=== PATIENT | female | born 1985 | race Caucasian/White ===

== ENCOUNTER 2017-08-14 06:50 | Emergency (ER) | payer MEDICAID ==
[~2017-08-14] VITALS: Ht 177.8 cm; Wt 127.0 kg
[~2017-08-14 06:50] MED LIST: ALBU17I INH; CIPR500T4 PO; PROM25SU8 PO
[2017-08-14 06:54] VITALS: BP 136/70; PULSE 73; RESP 15; TEMP 97.7; O2SAT 97
[2017-08-14] MEDS ORDERED: ACETAMINOPHEN 500 MG CPLT PO ONE (07:30)
[2017-08-14] MEDS ORDERED: AMOX500T PO (07:35)
[2017-08-14] MEDS ORDERED: TYLE325T PO (07:35)
--- NOTE | 2017-08-14 07:35 | PD ---
HPI Chief Complaint: ENT Complaint Time Seen by Provider: 07:05 Travel History International Travel<30 days: No Contact w/Intl Traveler<30days: No Traveled to known affect area: No History of Present Illness HPI 31yo F with no significant PMH presents to the ED with c/o left ear pain since yesterday. States last time she had an ear infection, it felt like this. Pain is sharp, starting to radiating to her throat and also with ear fullness. Denies any fever, trauma, ear drainage, bleeding from ear, excessive swimming. Denies any rhinorrhea, cough, chest pain, sob, n/v, abdominal pain, focal weakness or numbness. Took ibuprofen with no relieve. PFSH Past Medical History Asthma: Yes Cancer: No Cardiovascular Problems: No Diabetes: No Diminished Hearing: No Endocrine: No Gastrointestinal Disorders: No Genitourinary: No Hepatitis: No Hiatal Hernia: No Hypertension: No Immune Disorder: No Musculoskeletal: No Neurologic: No Psychiatric: No Reproductive: No Respiratory: Yes (asthma) Immunizations Current: Yes Thyroid Disease: No ?: Not LMP: 07/25/2017 Miscarriage: 2 Dilation and Curettage (D&C): Yes Past Surgical History Gynecologic Surgery: Yes (d and c ) Oral Surgery: Yes (tonsillectomy) Pacemaker: No Tonsillectomy: Yes Other Surgery: Yes Social History Alcohol Use: No Tobacco Use: No Substance Use: No Allergies-Medications (Allergen,Severity, Reaction): Coded Allergies: No Known Allergies (Verified , 08/14/17) Reported Meds & Prescriptions Reported Meds & Active Scripts Active Tylenol (Acetaminophen) 325 Mg Tab 650 Mg PO Q6H PRN Amoxicillin 500 Mg Tab 1,000 Mg PO Q8HR 5 Days Review of Systems Except as stated in HPI: all other systems reviewed are Neg Physical Exam Narrative GENERAL: 31yo F in mild distress. SKIN: Focused skin assessment warm/dry. HEAD: Atraumatic. Normocephalic. EYES: Pupils equal and round. No scleral icterus. No injection or drainage. ENT: TM wnl bilaterally. No erythema. No fluid behind TM. No external canal edema. No mastoid ttp. Throat: Clear. Uvula midline. No erythema or exudate. NECK: Trachea midline. No JVD. Mild left anterior cervical lymphadenopathy. CARDIOVASCULAR: Regular rate and rhythm. No murmur appreciated. RESPIRATORY: No accessory muscle use. Clear to auscultation. Breath sounds equal bilaterally. GASTROINTESTINAL: Abdomen soft, non-tender, nondistended. MUSCULOSKELETAL: No obvious deformities. No clubbing. No cyanosis. No edema. NEUROLOGICAL: Awake and alert. No obvious cranial nerve deficits. Motor grossly within normal limits. Normal speech. PSYCHIATRIC: Appropriate mood and affect; insight and judgment normal. Data Data Last Documented VS Vital Signs Date Time Temp Pulse Resp B/P (MAP) Pulse Ox O2 Delivery O2 Flow Rate FiO2 08/14/17 06:54 97.7 73 15 136/70 (92) 97 Orders Orders Acetaminophen (Tylenol) (08/14/17 07:30) MDM Medical Decision Making Medical Screen Exam Complete: Yes Emergency Medical Condition: Yes Differential Diagnosis Viral syndrome vs. early otitis media Narrative Course 31yo F with left ear pain for 1 day. I informed pt that the physical exam is not consistent with acute otitis media. She is insistent that she is going to working all weekend and unable to see a doctor this weekend. After discussion of risks versus benefit of antibiotics, I agreed to prescribe antibiotics for otitis media but I do not want her to fill it. I said that if the pain persists , she can be evaluated by her primary care physician. However, if she absolutely cannot follow up and pain is worsening with fever, then she can consider filling the prescription. Will give acetaminophen now for pain. Pt reevaluated at bedside and feels better and understands all instructions. Diagnosis Primary Impression: Left ear pain Patient Instructions: General Instructions Departure Forms: Tests/Procedures Additional Instructions: Please follow up with your primary care physician if pain continues or worsens. Return to the ED if symptoms worsen. Med/Other Pt SpecificInfo: Prescription(s) given Scripts Acetaminophen (Tylenol) 325 Mg Tab 650 MG PO Q6H Y for PAIN SCALE 1 TO 4, #20 TAB 0 Refills Prov: Antonette Wise DO 08/14/17 Amoxicillin (Amoxicillin) 500 Mg Tab 1000 MG PO Q8HR for Infection for 5 Days, TAB 0 Refills Prov: Antonette Wise DO 08/14/17 Disposition: 01 DISCHARGE HOME Condition: Stable Antonette Wise DO Aug 14, 2017 07:35
== END 2017-08-14 07:42 | disposition home or self-care (01) ==
LOC: PHED 06:50
DX: H92.02 Otalgia, left ear (principal)
CPT/HCPCS: 99283

== ENCOUNTER 2017-09-01 09:42 | Emergency (ER) | payer MEDICAID ==
[~2017-09-01] VITALS: Ht 154.9 cm; Wt 126.0 kg
[~2017-09-01 09:42] MED LIST changes: -ALBU17I INH; +AMOX500T PO; -CIPR500T4 PO; -PROM25SU8 PO; +TYLE325T PO
[2017-09-01 09:54] VITALS: BP 136/77; PULSE 74; RESP 16; TEMP 98.2; O2SAT 100
[2017-09-01] MEDS ORDERED: SODIUM CHLOR 0.9% 1000 ML INJ 1,000 ML IV ONE ×2 (09:59→12:32)
[2017-09-01] MEDS ORDERED: SODIUM CHLORIDE 0.9% FLUSH 10 ML FLUSH IVF PRN (10:00)
[2017-09-01] MEDS ORDERED: MECLIZINE HCL 25 MG TAB PO ONE (10:00)
[2017-09-01] MEDS ORDERED: ONDANSETRON HCL 4 MG/2 ML VIAL IVP ONE (10:00)
[2017-09-01] MEDS ORDERED: LORazepam 2 MG/ML VIAL IV PUSH ONE (10:00)
[2017-09-01 10:29] LABS: BASOPHIL # 0.1 TH/MM3 (0-0.2); BASOPHIL % 1.1 % (0.0-2.0); EOSINOPHIL # 0.3 TH/MM3 (0-0.4); EOSINOPHIL % 3.4 % (0.0-4.0); HEMATOCRIT 38.5 % (35.0-46.0); HEMOGLOBIN 12.6 GM/DL (11.6-15.3); LYMPH % 21.6 % (9.0-44.0); LYMPHOCYTE # 1.6 TH/MM3 (1.0-4.8); MEAN CELL VOLUME 78.3 FL (80.0-100.0); MEAN CORPUSCULAR HEMOGLOBIN 25.7 PG (27.0-34.0); MEAN CORPUSCULAR HGB CONC 32.8 % (32.0-36.0); MEAN PLATELET VOLUME 8.4 FL (7.0-11.0); MONO % 8.5 % (0.0-8.0); MONOCYTE # 0.6 TH/MM3 (0-0.9); NEUT % 65.4 % (16.0-70.0); PLATELET COUNT 220 TH/MM3 (150-450); RED BLOOD COUNT 4.91 MIL/MM3 (4.00-5.30); RED CELL DISTRIBUTION WIDTH 15.5 % (11.6-17.2); WHITE BLOOD COUNT 7.6 TH/MM3 (4.0-11.0)
[2017-09-01 10:48] LABS: BICARBONATE 21.2 MEQ/L (21.0-32.0); CREATININE 0.68 MG/DL (0.50-1.00)
[2017-09-01 11:00] VITALS: BP 125/80; PULSE 74; RESP 16; O2SAT 98
[2017-09-01 12:23] LABS: AMORPHOUS SEDIMENT, URINE RARE; BACTERIA, URINE OCC /hpf; BILIRUBIN, URINE NEG (NEG); BLOOD, URINE NEG (NEG); GLUCOSE,URINE NEG (NEG); KETONE, URINE NEG (NEG); MUCUS URINE FEW /lpf (OCC); NITRITE,URINE NEG (NEG); SQUAMOUS EPITHELIAL CELL URINE 10 /hpf (0-5); URINE COLOR LIGHT-YELLOW (YELLW/STRAW); URINE LEUKOCYTE ESTERASE LARGE (NEG)
[2017-09-01 12:30] VITALS: BP 120/60; PULSE 60; RESP 16; O2SAT 98
[2017-09-01] MEDS ORDERED: MECL-62 PO (12:30)
--- NOTE | 2017-09-01 12:30 | PD ---
HPI Chief Complaint: Dizziness Time Seen by Provider: 09:59 Travel History International Travel<30 days: No Contact w/Intl Traveler<30days: No Traveled to known affect area: No History of Present Illness HPI 31-year-old female arrives complaining of right face pain after undergoing 3 fillings by dentist just earlier today. She also describes a fullness sensation in the throat. Lidocaine was injected. She reports sitting upright from the dentist chair and feeling dizzy. Short of breath accompanied the dizziness. She describes a choking sensation as well as a headache and a squeezing quality. EMS notes vital signs were normal. Patient describes the dizziness, vertiginous in nature. No loss of consciousness. No chest pain. No fever. No similar prior episodes according to patient. PFSH Past Medical History Asthma: Yes Cancer: No Cardiovascular Problems: No Diabetes: No Diminished Hearing: No Endocrine: No Gastrointestinal Disorders: No Genitourinary: No Hepatitis: No Hiatal Hernia: No Hypertension: No Immune Disorder: No Musculoskeletal: No Neurologic: No Psychiatric: No Reproductive: No Respiratory: Yes (ASTHMA) Immunizations Current: Yes Thyroid Disease: No Tetanus Vaccination: < 5 Years Influenza Vaccination: No ?: Unknown Miscarriage: 2 Dilation and Curettage (D&C): Yes Past Surgical History Gynecologic Surgery: Yes (d and c ) Oral Surgery: Yes (tonsillectomy) Pacemaker: No Tonsillectomy: Yes Other Surgery: Yes Social History Alcohol Use: No Tobacco Use: No Substance Use: No Allergies-Medications (Allergen,Severity, Reaction): Coded Allergies: rabbit dander (Verified Allergy, Severe, Anaphylaxis, 09/01/17) Reported Meds & Prescriptions Reported Meds & Active Scripts Active Meclizine (Meclizine HCl) 25 Mg Tab 25 Mg PO TID PRN Review of Systems Except as stated in HPI: all other systems reviewed are Neg General / Constitutional: No: Fever Cardiovascular: Positive: Chest Pain or Discomfort Physical Exam Narrative GENERAL: 31-year-old female pleasant well-nourished well-developed acute distress SKIN: Warm and dry. HEAD: Atraumatic. Normocephalic. EYES: Pupils equal and round. No scleral icterus. No injection or drainage. ENT: No nasal bleeding or discharge. Mucous membranes pink and moist. No gross abnormality involving oral mucosa or dentition. Posterior oropharynx widely patent. NECK: Trachea midline. No JVD. No anterior neck masses. No anterior neck tenderness. Normal range of motion flexion extension rotation. CARDIOVASCULAR: Regular rate and rhythm. RESPIRATORY: No accessory muscle use. Clear to auscultation. Breath sounds equal bilaterally. GASTROINTESTINAL: Abdomen soft, non-tender, nondistended. Hepatic and splenic margins not palpable. MUSCULOSKELETAL: Extremities without clubbing, cyanosis, or edema. No obvious deformities. NEUROLOGICAL: Awake and alert. No obvious cranial nerve deficits. Motor grossly within normal limits. Five out of 5 muscle strength in the arms and legs. Normal speech. PSYCHIATRIC: Appropriate mood and affect; insight and judgment normal. Data Data Last Documented VS Vital Signs Date Time Temp Pulse Resp B/P (MAP) Pulse Ox O2 Delivery O2 Flow Rate FiO2 09/01/17 13:13 98.0 09/01/17 11:00 74 16 98 Room Air Vital Signs Date Time Temp Pulse Resp B/P (MAP) Pulse Ox O2 Delivery O2 Flow Rate FiO2 09/01/17 13:13 98.0 09/01/17 11:00 74 16 125/80 (95) 98 Room Air 09/01/17 09:54 98.2 74 16 136/77 (96) 100 Orders Orders Electrocardiogram (09/01/17 09:59) Basic Metabolic Panel (Bmp) (09/01/17 09:59) Complete Blood Count With Diff (09/01/17 09:59) Urinalysis - C+S If Indicated (09/01/17 09:59) Ecg Monitoring (09/01/17 09:59) Iv Access Insert/Monitor (09/01/17 09:59) Oximetry (09/01/17 09:59) Meclizine (Antivert) (09/01/17 10:00) Ondansetron Inj (Zofran Inj) (09/01/17 10:00) Sodium Chloride 0.9% Flush (Ns Flush) (09/01/17 10:00) Sodium Chlor 0.9% 1000 Ml Inj (Ns 1000 M (09/01/17 09:59) Lorazepam Inj (Ativan Inj) (09/01/17 10:00) Prochlorperazine Inj (Compazine Inj) (09/01/17 12:45) Diphenhydramine Inj (Benadryl Inj) (09/01/17 12:45) Sodium Chlor 0.9% 1000 Ml Inj (Ns 1000 M (09/01/17 12:32) Ed Discharge Order (09/01/17 13:20) Labs Laboratory Tests Test 09/01/17 09:25 09/01/17 11:45 White Blood Count 7.6 TH/MM3 Red Blood Count 4.91 MIL/MM3 Hemoglobin 12.6 GM/DL Hematocrit 38.5 % Mean Corpuscular Volume 78.3 FL Mean Corpuscular Hemoglobin 25.7 PG Mean Corpuscular Hemoglobin Concent 32.8 % Red Cell Distribution Width 15.5 % Platelet Count 220 TH/MM3 Mean Platelet Volume 8.4 FL Neutrophils (%) (Auto) 65.4 % Lymphocytes (%) (Auto) 21.6 % Monocytes (%) (Auto) 8.5 % Eosinophils (%) (Auto) 3.4 % Basophils (%) (Auto) 1.1 % Neutrophils # (Auto) 5.0 TH/MM3 Lymphocytes # (Auto) 1.6 TH/MM3 Monocytes # (Auto) 0.6 TH/MM3 Eosinophils # (Auto) 0.3 TH/MM3 Basophils # (Auto) 0.1 TH/MM3 CBC Comment DIFF FINAL Differential Comment Blood Urea Nitrogen 10 MG/DL Creatinine 0.68 MG/DL Random Glucose 99 MG/DL Calcium Level 9.0 MG/DL Sodium Level 138 MEQ/L Potassium Level 4.0 MEQ/L Chloride Level 107 MEQ/L Carbon Dioxide Level 21.2 MEQ/L Anion Gap 10 MEQ/L Estimat Glomerular Filtration Rate 100 ML/MIN Urine Color LIGHT-YELLOW Urine Turbidity HAZY Urine pH 7.0 Urine Specific [place] 1.008 Urine Protein NEG mg/dL Urine Glucose (UA) NEG mg/dL Urine Ketones NEG mg/dL Urine Occult Blood NEG Urine Nitrite NEG Urine Bilirubin NEG Urine Urobilinogen LESS THAN 2.0 MG/DL Urine Leukocyte Esterase LARGE Urine RBC 6 /hpf Urine WBC 2 /hpf Urine Squamous Epithelial Cells 10 /hpf Urine Amorphous Sediment RARE Urine Bacteria OCC /hpf Urine Mucus FEW /lpf Microscopic Urinalysis Comment CULT NOT INDICATED MDM Medical Decision Making Medical Screen Exam Complete: Yes Emergency Medical Condition: Yes Medical Record Reviewed: Yes Differential Diagnosis Anemia, electrolyte imbalance, migraine, side effects from lidocaine ingestion, anxiety, anaphylaxis Narrative Course CBC & BMP Diagram 09/01/17 09:25 Calcium Level 9.0 EKG reveals sinus rhythm with a rate of 70 normal axis intervals no preexcitation or ischemic injury pattern The patient received meclizine and IV fluids. Upon reassessment dizziness had improved however headache persisted. Compazine Benadryl IV fluids added. Reassessment at approximately 1145 patient reports resolution of pain and is ready for discharge. Diagnosis Primary Impression: Vertigo Additional Impression: Headache Qualified Codes: R51 - Headache Referrals: Primary Care Physician call for appointment Additional Instructions: You have a choice when it comes to health care, and we are glad that you chose [email or web address]. Hopefully, we have met your expectations on today's visit. You are welcome to return to [email or web address] at any time, as we are committed to meeting the health care needs of our community. Med/Other Pt SpecificInfo: Prescription(s) given Scripts Meclizine (Meclizine) 25 Mg Tab 25 MG PO TID Y for VERTIGO, #30 TAB 0 Refills Prov: Latrell Guzman MD 09/01/17 Disposition: DISCHARGE HOME Condition: Stable Latrell Guzman MD Sep 01, 2017 12:30
[2017-09-01] MEDS ORDERED: diphenhydrAMINE HCL 50 MG/ML VIAL IVP ONE (12:45)
[2017-09-01] MEDS ORDERED: PROCHLORPERAZINE INJ 10 MG/2 ML VIAL IVP ONE (12:45)
[2017-09-01 13:13] VITALS: TEMP 98
[2017-09-01 14:09] VITALS: BP 119/64; PULSE 66; RESP 14; O2SAT 98
--- NOTE | 2017-09-01 17:55 | EKG ---
Date Performed: 09/01/2017 Time Performed: 10:28:10 PTAGE: 31 years EKG: Sinus rhythm MODERATE VOLTAGE CRITERIA FOR LVH, CONSIDER NORMAL VARIANT BORDERLINE ECG Compared to prior tracing no significant change PREVIOUS TRACING : 01/21/2008 19.11 DOCTOR: Dio Flores Interpretating Date/Time 09/01/2017 17:53:53
== END 2017-09-01 14:30 | disposition home or self-care (01) ==
LOC: NEPC 09:42
DX: R42 Dizziness and giddiness (principal); R51 Headache
CPT/HCPCS: 80048; 81001; 85025; 93005; 96361; 96374; 96375; 99284; J0780; J1200; J2060; J2405; J7030

== ENCOUNTER 2017-09-26 11:17 | Emergency (ER) | payer MEDICAID ==
[~2017-09-26] VITALS: Ht 180.3 cm; Wt 128.0 kg
[~2017-09-26 11:17] MED LIST changes: -AMOX500T PO; +MECL-62 PO; -TYLE325T PO
[2017-09-26 11:21] VITALS: BP 155/79; PULSE 67; RESP 16; TEMP 98.6; O2SAT 99
[2017-09-26] MEDS ORDERED: PENI250T PO (11:32)
[2017-09-26] MEDS ORDERED: KETOROLAC TROMETHAMINE 60 MG/2 ML (IM) VIAL IM ONE (12:00)
[2017-09-26] MEDS ORDERED: CLIN300C5 PO (12:08)
--- NOTE | 2017-09-26 12:14 | PD ---
HPI Chief Complaint: Oral / Dental Pain or Problem Time Seen by Provider: 11:47 Travel History International Travel<30 days: No Contact w/Intl Traveler<30days: No Traveled to known affect area: No History of Present Illness HPI 31-year-old female here for evaluation of left lower facial swelling. She was diagnosed with a dental infection and started on Pen-Vee K several days ago. When she woke this morning she noticed the swelling was worse prompting her emergency room visit. She denies difficulty swallowing or change in voice. She reports the pain is constant, throbbing located left lower jaw. No alleviating factors. Pain severity 04/19. PFSH Past Medical History Asthma: Yes Cancer: No Cardiovascular Problems: No Diabetes: No Diminished Hearing: No Endocrine: No Gastrointestinal Disorders: No Genitourinary: No Hepatitis: No Hiatal Hernia: No Hypertension: No Immune Disorder: No Musculoskeletal: No Neurologic: No Psychiatric: No Reproductive: No Respiratory: Yes (ASTHMA) Immunizations Current: Yes Thyroid Disease: No ?: Unknown LMP: 08/29/17 Miscarriage: 2 Dilation and Curettage (D&C): Yes Past Surgical History Gynecologic Surgery: Yes (d and c ) Oral Surgery: Yes (tonsillectomy) Pacemaker: No Tonsillectomy: Yes Other Surgery: Yes Social History Alcohol Use: No Tobacco Use: No Substance Use: No Allergies-Medications (Allergen,Severity, Reaction): Coded Allergies: rabbit dander (Verified Allergy, Severe, Anaphylaxis, 09/26/17) Reported Meds & Prescriptions Reported Meds & Active Scripts Active Reported Penicillin V Potassium 250 Mg Tab 250 Mg PO Q6H Review of Systems Except as stated in HPI: all other systems reviewed are Neg Physical Exam Narrative GENERAL: Well-nourished, well-developed patient. SKIN: Focused skin assessment warm/dry. HEAD: Normocephalic. EYES: No scleral icterus. No injection or drainage. MOUTH: Mucous membranes moist, no lesions, tongue and gums appear normal. No swelling to the floor the mouth. Uvula is midline. NECK: Supple, trachea midline. No JVD or lymphadenopathy. CARDIOVASCULAR: Regular rate and rhythm without murmurs, gallops, or rubs. RESPIRATORY: Breath sounds equal bilaterally. No accessory muscle use. Data Data Last Documented VS Vital Signs Date Time Temp Pulse Resp B/P (MAP) Pulse Ox O2 Delivery O2 Flow Rate FiO2 09/26/17 11:21 98.6 67 16 155/79 (104) 99 Orders Orders Ketorolac Inj (Toradol Inj) (09/26/17 12:00) MDM Medical Decision Making Medical Screen Exam Complete: Yes Emergency Medical Condition: Yes Differential Diagnosis Dental abscess, periodontal disease, very unlikely Cristopher angina Narrative Course 31-year-old female here for evaluation of left lower facial swelling. She was diagnosed with a dental infection and started on Pen-Vee K several days ago. When she woke this morning she noticed the swelling was worse prompting her emergency room visit. Her vital signs are stable and she is nontoxic- appearing. She denies difficulty swallowing. On exam she has isolated left cheek swelling. There is no oral swelling. She was instructed to stop the penicillin and start clindamycin and follow up with her dentist at her scheduled appointment. Diagnosis Primary Impression: Dental abscess Referrals: Dentist Additional Instructions: Take the antibiotics as prescribed. Continue the Motrin as needed for pain. Follow-up with your dentist. Return to emergency department if new or worsening symptoms. Scripts Clindamycin (Clindamycin) 300 Mg Cap 300 MG PO Q6H for Infection for 10 Days, #40 CAP 0 Refills Prov: Chelo Gray 09/26/17 Disposition: 01 DISCHARGE HOME Condition: Stable Chelo Gray Sep 26, 2017 12:14
[2017-09-27] MEDS ORDERED: TRAM50TA PO (17:44)
== END 2017-09-26 12:27 | disposition home or self-care (01) ==
LOC: PHEFT 11:17
DX: K04.7 Periapical abscess without sinus (principal)
CPT/HCPCS: 96372; 99284; J1885

== ENCOUNTER 2017-09-27 16:21 | Emergency (ER) | payer MEDICAID ==
[~2017-09-27 16:21] MED LIST changes: +CLIN300C5 PO; -MECL-62 PO; +PENI250T PO
[2017-09-27 16:23] VITALS: BP 148/85; PULSE 74; RESP 17; TEMP 98.6; O2SAT 100
[2017-09-27] MEDS ORDERED: TRAM50TA PO (17:44)
[2017-09-27] MEDS ORDERED: KETOROLAC TROMETHAMINE 60 MG/2 ML (IM) VIAL IM ONE (17:45)
--- NOTE | 2017-09-27 17:45 | PD ---
HPI Chief Complaint: Oral / Dental Pain or Problem Time Seen by Provider: 17:23 Travel History International Travel<30 days: No Contact w/Intl Traveler<30days: No Traveled to known affect area: No History of Present Illness HPI This is a 31-year-old female who has a known dental abscess affecting the left jaw which has been going on for about a week who presents to the emergency department with increasing pain. She saw a dentist earlier in the week who put her on Flagyl which she been taking up until yesterday. She was seen in the emergency department yesterday because she had increasing swelling and she didn' t feel like she was getting better. Her pain is moderate severity, constant, throbbing, with no associated fevers or chills. She started clindamycin and has been taking it for 24 hours. She comes in today because her pain is unbearable. She's been taking 800 mg of ibuprofen every 4-6 hours and is not helping. She does have a dental appointment on Friday. [facility] Past Medical History Narrative Medical Asthma Asthma: Yes Cancer: No Cardiovascular Problems: No Diabetes: No Diminished Hearing: No Endocrine: No Gastrointestinal Disorders: No Genitourinary: No Hepatitis: No Hiatal Hernia: No Hypertension: No Immune Disorder: No Musculoskeletal: No Neurologic: No Psychiatric: No Reproductive: No Respiratory: Yes (ASTHMA) Immunizations Current: Yes Thyroid Disease: No ?: Unknown LMP: 08/29/17 Miscarriage: 2 Dilation and Curettage (D&C): Yes Past Surgical History Gynecologic Surgery: Yes (d and c ) Oral Surgery: Yes (tonsillectomy) Pacemaker: No Tonsillectomy: Yes Other Surgery: Yes Social History Alcohol Use: No Tobacco Use: No Substance Use: No Allergies-Medications (Allergen,Severity, Reaction): Coded Allergies: rabbit dander (Verified Allergy, Severe, Anaphylaxis, 09/27/17) Reported Meds & Prescriptions Reported Meds & Active Scripts Active Tramadol (Tramadol HCl) 50 Mg Tab 50 Mg PO Q6H PRN Clindamycin (Clindamycin HCl) 300 Mg Cap 300 Mg PO Q6H 10 Days Reported Penicillin V Potassium 250 Mg Tab 250 Mg PO Q6H Review of Systems Except as stated in HPI: all other systems reviewed are Neg Physical Exam Narrative GENERAL:Well appearing, no acute distress SKIN: Focused skin assessment warm and dry. HEAD: Atraumatic. Normocephalic. EYES: Pupils equal and round. No injection or drainage. ENT: Swelling of the left mandible with a area of fullness, markedly tender. Patient has a old fractured mandibular molar which is tender to palpation. No submental or sublingual fullness and no erythema or induration of the neck or chest. NECK: Trachea midline. CARDIOVASCULAR: Regular rate and rhythm. No murmur appreciated. RESPIRATORY: Clear to auscultation. Breath sounds equal bilaterally. GASTROINTESTINAL: Abdomen soft, non-tender, nondistended. MUSCULOSKELETAL: No obvious deformities. NEUROLOGICAL: Awake and alert. No obvious cranial nerve deficits. Moving all extremities. PSYCHIATRIC: Appropriate mood and affect; insight and judgment normal. Data Data Last Documented VS Vital Signs Date Time Temp Pulse Resp B/P (MAP) Pulse Ox O2 Delivery O2 Flow Rate FiO2 09/27/17 17:09 16 09/27/17 16:23 98.6 74 148/85 (106) 100 Room Air Orders Orders Ketorolac Inj (Toradol Inj) (09/27/17 17:45) Ed Discharge Order (09/27/17 17:45) [facility] Medical Decision Making Medical Screen Exam Complete: Yes Emergency Medical Condition: Yes Differential Diagnosis Dental abscess, Cristopher's angina, dental pain Narrative Course This is a 31-year-old female who has a dental abscess who presents with increasing pain. She has an appointment with the dentist on Friday and has been compliant with antibiotics. She's been taking ibuprofen but has not been helping. Patient was given an injection of IM Toradol and will be discharged on a short course of tramadol. I counseled her regarding the risks of opiate therapy and I counseled her regarding the signs and symptoms of Cristopher angina. Diagnosis Primary Impression: Dental abscess Patient Instructions: General Instructions Additional Instructions: If you develop increasing swelling, difficulty eating difficulty swallowing or difficulty breathing return to the emergency room. Follow-up with your dentist as soon as possible. Med/Other Pt SpecificInfo: Prescription(s) given Scripts Tramadol (Tramadol) 50 Mg Tab 50 MG PO Q6H Y for PAIN, #14 TAB 0 Refills Prov: Jessica Medrano MD 09/27/17 Disposition: 01 DISCHARGE HOME Condition: Stable Jessica Medrano MD Sep 27, 2017 17:44
== END 2017-09-27 18:30 | disposition home or self-care (01) ==
LOC: NEPD 16:21
DX: K04.7 Periapical abscess without sinus (principal); Z87.09 Personal history of other diseases of the respiratory system
CPT/HCPCS: 96372; 99284; J1885

== ENCOUNTER 2017-10-20 14:42 | Emergency (ER) | payer MEDICAID ==
[~2017-10-20] VITALS: Ht 180.3 cm; Wt 125.0 kg
[~2017-10-20 14:42] MED LIST changes: +TRAM50TA PO
[2017-10-20 14:56] VITALS: BP 166/71; PULSE 116; RESP 20; TEMP 100.7; O2SAT 99
--- NOTE | 2017-10-20 15:11 | PD ---
HPI Chief Complaint: Cold / Flu Symptoms Time Seen by Provider: 15:06 Travel History International Travel<30 days: No Contact w/Intl Traveler<30days: No Traveled to known affect area: No History of Present Illness HPI 32-year-old female patient with history of asthma, presents to the ER today for 5 days history of nasal congestion, headaches, nausea, vomiting, diarrhea, body aches and pains, coughing. She states that her has had similar symptoms in the last few days. She states that her symptoms are improving but she is continuing to have fevers and was concerned. Modifying Factors: None Associated Signs & Symptoms: Cough, nausea, vomiting, diarrhea, body aches, fevers, headaches Risk Factors: Sick contact PFSH Past Medical History Asthma: Yes Cancer: No Cardiovascular Problems: No Diabetes: No Diminished Hearing: No Endocrine: No Gastrointestinal Disorders: No Genitourinary: No Hepatitis: No Hiatal Hernia: No Hypertension: No Immune Disorder: No Musculoskeletal: No Neurologic: No Psychiatric: No Reproductive: No Respiratory: Yes (ASTHMA) Immunizations Current: Yes Thyroid Disease: No ?: Not LMP: 10/04/17 Miscarriage: 2 Dilation and Curettage (D&C): Yes Past Surgical History Gynecologic Surgery: Yes (d and c ) Oral Surgery: Yes (tonsillectomy) Pacemaker: No Tonsillectomy: Yes Other Surgery: Yes Social History Alcohol Use: No Tobacco Use: No Substance Use: No Allergies-Medications (Allergen,Severity, Reaction): Coded Allergies: rabbit dander (Verified Allergy, Severe, Anaphylaxis, 10/20/17) Reported Meds & Prescriptions Reported Meds & Active Scripts Active Reported Proair Hfa 8.5 GM Inh (Albuterol Sulfate) 90 Mcg/Act Aer 2 Puff INH Q4-6H PRN 108 mcg/actuation Review of Systems Except as stated in HPI: all other systems reviewed are Neg Physical Exam Narrative GENERAL: Well-developed young female patient currently in mild distress. Awake and oriented 3. SKIN: Focused skin assessment warm/dry. HEAD: Atraumatic. Normocephalic. EYES: Pupils equal and round. No scleral icterus. No injection or drainage. ENT: No nasal bleeding or discharge. Mucous membranes pink and moist. NECK: Trachea midline. No JVD. CARDIOVASCULAR: Regular rate and rhythm. No murmur appreciated. RESPIRATORY: No accessory muscle use. Clear to auscultation. Breath sounds equal bilaterally. GASTROINTESTINAL: Abdomen soft, non-tender, nondistended. Hepatic and splenic margins not palpable. MUSCULOSKELETAL: No obvious deformities. No clubbing. No cyanosis. No edema. NEUROLOGICAL: Awake and alert. No obvious cranial nerve deficits. Motor grossly within normal limits. Normal speech. PSYCHIATRIC: Appropriate mood and affect; insight and judgment normal. Data Data Last Documented VS Vital Signs Date Time Temp Pulse Resp B/P (MAP) Pulse Ox O2 Delivery O2 Flow Rate FiO2 10/20/17 15:34 100.2 114 20 134/68 (90) 97 Room Air Orders Orders Urinalysis - C+S If Indicated (10/20/17 15:06) Influenzae A/B Antigen (10/20/17 15:06) Ed Urine Pregnancytest Poc (10/20/17 15:06) Sepsis Workup Initiated (10/20/17 ) Complete Blood Count With Diff (10/20/17 16:01) Comprehensive Metabolic Panel (10/20/17 16:01) Lactic Acid Sepsis Protocol (10/20/17 16:01) Blood Culture (10/20/17 16:01) Sodium Chlor 0.9% 1000 Ml Inj (Ns 1000 M (10/20/17 16:01) Urine Culture (10/20/17 15:19) Ibuprofen (Motrin) (10/20/17 17:00) Nitrofurantoin Monohyd Macrocr (Macrobid (10/20/17 17:00) Labs Laboratory Tests Test 10/20/17 15:19 10/20/17 16:12 Urine Collection Type VOIDED Urine Color YELLOW Urine Turbidity HAZY Urine pH 7.5 Urine Specific [place] 1.012 Urine Protein NEG mg/dL Urine Glucose (UA) NEG mg/dL Urine Ketones NEG mg/dL Urine Occult Blood TRACE Urine Nitrite NEG Urine Bilirubin NEG Urine Leukocyte Esterase LARGE Urine RBC 0-3 /hpf Urine WBC 25-49 /hpf Urine WBC Clumps FEW Urine Squamous Epithelial Cells 0-3 /hpf Urine Bacteria FEW /hpf Microscopic Urinalysis Comment CULTURE INDICATED White Blood Count 8.9 TH/MM3 Red Blood Count 5.12 MIL/MM3 Hemoglobin 12.6 GM/DL Hematocrit 39.9 % Mean Corpuscular Volume 78.0 FL Mean Corpuscular Hemoglobin 24.6 PG Mean Corpuscular Hemoglobin Concent 31.6 % Red Cell Distribution Width 13.6 % Platelet Count 244 TH/MM3 Mean Platelet Volume 7.8 FL Neutrophils (%) (Auto) 74.9 % Lymphocytes (%) (Auto) 12.3 % Monocytes (%) (Auto) 10.5 % Eosinophils (%) (Auto) 1.4 % Basophils (%) (Auto) 0.9 % Neutrophils # (Auto) 6.7 TH/MM3 Lymphocytes # (Auto) 1.1 TH/MM3 Monocytes # (Auto) 0.9 TH/MM3 Eosinophils # (Auto) 0.1 TH/MM3 Basophils # (Auto) 0.1 TH/MM3 CBC Comment AUTO DIFF Differential Comment AUTO DIFF CONFIRMED Platelet Estimate NORMAL Platelet Morphology Comment NORMAL Blood Urea Nitrogen 8 MG/DL Creatinine 0.93 MG/DL Random Glucose 93 MG/DL Total Protein 8.6 GM/DL Albumin 3.6 GM/DL Calcium Level 9.1 MG/DL Alkaline Phosphatase 73 U/L Aspartate Amino Transf (AST/SGOT) 13 U/L Alanine Aminotransferase (ALT/SGPT) 21 U/L Total Bilirubin 0.4 MG/DL Sodium Level 136 MEQ/L Potassium Level 3.8 MEQ/L Chloride Level 100 MEQ/L Carbon Dioxide Level 28.3 MEQ/L Anion Gap 8 MEQ/L Estimat Glomerular Filtration Rate 69 ML/MIN Lactic Acid Level 1.3 mmol/L MDM Medical Decision Making Medical Screen Exam Complete: Yes Emergency Medical Condition: Yes Medical Record Reviewed: Yes Interpretation(s) Laboratory Tests Test 10/20/17 15:19 10/20/17 16:12 Urine Turbidity HAZY (CLEAR) Urine Leukocyte Esterase LARGE (NEG) Urine WBC 25-49 /hpf (0-5) Urine WBC Clumps FEW (NONE) Urine Bacteria FEW /hpf (NONE) Mean Corpuscular Volume 78.0 FL (80.0-100.0) Mean Corpuscular Hemoglobin 24.6 PG (27.0-34.0) Mean Corpuscular Hemoglobin Concent 31.6 % (32.0-36.0) Neutrophils (%) (Auto) 74.9 % (16.0-70.0) Monocytes (%) (Auto) 10.5 % (0.0-8.0) Total Protein 8.6 GM/DL (6.4-8.2) Aspartate Amino Transf (AST/SGOT) 13 U/L (15-37) Estimat Glomerular Filtration Rate 69 ML/MIN (>89) Differential Diagnosis Viral URI versus influenza versus UTI versus bronchitis versus pneumonia Narrative Course Influenza test is negative. She has a significant UTI. Lactate was unremarkable. I suspect that she is having many of the symptoms secondary to UTI as well. Ibuprofen and Macrobid was given in the ER. IV fluids was also given. My plan would be to release her with further treatment of UTI and follow -up with primary care doctor. Return for worsening in symptoms as necessary. The plan has discussed with her and she states understanding. Diagnosis Primary Impression: UTI (urinary tract infection) Med/Other Pt SpecificInfo: Prescription(s) given Scripts Nitrofurantoin Monohydrate Macrocrystals (Macrobid) 100 Mg Cap 100 MG PO BID for Infection for 7 Days, #14 CAP 0 Refills Prov: En Lee MD 10/20/17 Ibuprofen (Ibuprofen) 600 Mg Tab 600 MG PO Q6H Y for Pain/Inflammation, #20 TAB 0 Refills Prov: En Lee MD 10/20/17 Disposition: 01 DISCHARGE HOME Condition: Stable En Lee MD Oct 20, 2017 15:11
[2017-10-20] MEDS ORDERED: ALBUAER3 INH (15:15)
[2017-10-20 15:34] VITALS: BP 134/68; PULSE 114; RESP 20; TEMP 100.2; O2SAT 97
[2017-10-20 15:50] LABS: BLOOD, URINE TRACE (NEG); GLUCOSE,URINE NEG (NEG); KETONE, URINE NEG (NEG); NITRITE,URINE NEG (NEG); PH, URINE 7.5 (5.0-8.5)
[2017-10-20] MEDS ORDERED: SODIUM CHLOR 0.9% 1000 ML INJ 1,000 ML IV ONE (16:01)
[2017-10-20 16:03] LABS: METHOD OF COLLECTION VOIDED; URINE COLOR YELLOW (YELLW/STRAW)
[2017-10-20 16:04] LABS: RBC, URINE 0-3 /hpf (0-3); SQUAMOUS EPITHELIAL CELL URINE 0-3 /hpf (0-5)
[2017-10-20 16:05] LABS: BACTERIA, URINE FEW /hpf; COMMENT (UR) CULTURE INDICATED; CULTURE IF INDICATED CULTURE INDICATED
[2017-10-20 16:26] LABS: AUTOMATED NEUTROPHIL # 6.7 TH/MM3 (1.8-7.7); BASOPHIL # 0.1 TH/MM3 (0-0.2); BASOPHIL % 0.9 % (0.0-2.0); EOSINOPHIL # 0.1 TH/MM3 (0-0.4); EOSINOPHIL % 1.4 % (0.0-4.0); HEMATOCRIT 39.9 % (35.0-46.0); LYMPH % 12.3 % (9.0-44.0); LYMPHOCYTE # 1.1 TH/MM3 (1.0-4.8); MEAN CORPUSCULAR HEMOGLOBIN 24.6 PG (27.0-34.0); MEAN CORPUSCULAR HGB CONC 31.6 % (32.0-36.0); MONO % 10.5 % (0.0-8.0); NEUT % 74.9 % (16.0-70.0); PLATELET COUNT 244 TH/MM3 (150-450); RED BLOOD COUNT 5.12 MIL/MM3 (4.00-5.30); RED CELL DISTRIBUTION WIDTH 13.6 % (11.6-17.2); WHITE BLOOD COUNT 8.9 TH/MM3 (4.0-11.0)
[2017-10-20 16:28] LABS: HEMO FLAGS AUTO DIFF
[2017-10-20 16:39] LABS: CHLORIDE 100 MEQ/L (98-107); POTASSIUM 3.8 MEQ/L (3.5-5.1); SODIUM (NA) 136 MEQ/L (136-145)
[2017-10-20 16:42] LABS: ANION GAP 8 MEQ/L (5-15); BICARBONATE 28.3 MEQ/L (21.0-32.0); BLOOD UREA NITROGEN 8 MG/DL (7-18)
[2017-10-20 16:45] LABS: ALT (GPT) 21 U/L (10-53); AST (GOT) 13 U/L (15-37)
[2017-10-20 16:46] LABS: GLOMERULAR FILTRATION RATE 69 ML/MIN (>89)
[2017-10-20 16:47] LABS: TOTAL BILIRUBIN ADULT 0.4 MG/DL (0.2-1.0)
[2017-10-20 16:48] LABS: ALKALINE PHOSPHATASE 73 U/L (45-117)
[2017-10-20 16:55] LABS: PLATELET ESTIMATE SMEAR NORMAL (NORMAL); PLATELET MORPHOLOGY NORMAL (NORMAL); SCAN/DIFF AUTO DIFF CONFIRMED
[2017-10-20] MEDS ORDERED: IBUPROFEN 600 MG TAB PO ONE (17:00)
[2017-10-20] MEDS ORDERED: NITROFURANTOIN MONOHYD MACROCR 100 MG CAP PO ONE (17:00)
[2017-10-20] MEDS ORDERED: IBUP-232 PO (17:00)
[2017-10-20] MEDS ORDERED: MACR100C2 PO (17:00)
[2017-10-20 17:45] VITALS: BP 132/66; PULSE 102; RESP 18; TEMP 100; O2SAT 99
== END 2017-10-20 17:48 | disposition home or self-care (01) ==
LOC: PHED 14:42
DX: N39.0 Urinary tract infection, site not specified (principal); B96.20 Unspecified Escherichia coli [E. coli] as the cause of diseases classified elsewhere; J45.909 Unspecified asthma, uncomplicated
CPT/HCPCS: 80053; 81001; 83605; 84703; 85025; 87040; 87077; 87086; 87186; 87804; 96360; 99284; J7030